=== PATIENT | male | born 1955 | race Caucasian/White ===

== ENCOUNTER 2017-01-17 17:15 | Emergency (ER) | payer MEDICAID ==
[2017-01-17 17:26] VITALS: TEMP 98.2
[2017-01-17] MEDS ORDERED: Sodium Chloride 0.9% 1,000 ML IV ONE (17:35)
[2017-01-17] MEDS ORDERED: DiphenhydrAMINE 50 mg/ml Inj IVP STA (17:35)
[2017-01-17] MEDS ORDERED: Sodium Chloride 0.9% 1,000 ML ONE (17:42)
[2017-01-17] MEDS ORDERED: DiphenhydrAMINE 50 mg/ml Inj ONE (17:42)
--- NOTE | 2017-01-17 18:12 | C.PDOC ---
History Of Present Illness 61 y/o male presents to the ED with complains of allergic reaction to new medication. Patient was recently prescribed relafen and baclofen for back pain; was taking gabapentin and tramadol prior. Patient admits did not eat prior to taking new medications. He reports feeling light headed and itchy. Denies SOB, throat pain, difficulty swallowing, rash, cough or any other complaints. Time Seen by Provider: 01/17/17 17:30 Chief Complaint (Nursing): Allergic Reaction History Per: Patient History/Exam Limitations: no limitations Onset/Duration Of Symptoms: Hrs Current Symptoms Are (Timing): Still Present Severity: Mild Recent travel outside of the [place]: No Past Medical History Reviewed: Historical Data, Nursing Documentation, Vital Signs Vital Signs: Last Vital Signs Temp 98.2 F 01/17/17 18:41 Pulse 52 L 01/17/17 18:41 Resp 14 01/17/17 18:41 BP 159/82 H 01/17/17 18:41 Pulse Ox 100 01/17/17 18:41 - Medical History PMH: Back Problems Family History: States: Unknown Family Hx - Social History Hx Tobacco Use: No Hx Alcohol Use: No Hx Substance Use: No Review Of Systems Constitutional: Negative for: Fever, Weakness, Malaise Eyes: Negative for: Vision Change ENT: Negative for: Throat Pain Cardiovascular: Negative for: Chest Pain, Palpitations Respiratory: Negative for: Cough, Shortness of Breath, Wheezing Gastrointestinal: Negative for: Nausea, Vomiting, Abdominal Pain, Diarrhea Skin: Positive for: Other (itchiness) Neurological: Positive for: Headache, Other (lightheaded) Physical Exam - Physical Exam Appears: Non-toxic, No Acute Distress Skin: Warm, Dry, No Rash Head: Atraumatic, Normacephalic, No Tenderness Eye(s): bilateral: Normal Inspection, PERRL, EOMI Nose: Normal Oral Mucosa: Moist Tongue: Normal Appearing, No Swelling Lips: Normal Appearing, No Swelling Throat: Normal, No Erythema, No Drooling, No Mass Neck: Normal, Normal ROM, Supple Chest: Symmetrical Cardiovascular: Rhythm Regular, No Murmur Respiratory: Normal Breath Sounds, No Rales, No Rhonchi, No Wheezing Gastrointestinal/Abdominal: Normal Exam, Soft, No Tenderness Extremity: Bilateral: Atraumatic, Normal Color And Temperature, Normal ROM Neurological/Psych: Oriented x3, Normal Speech Gait: Steady ED Course And Treatment ECG: Interpreted By Me, Viewed By Me ECG Rhythm: Sinus Bradycardia ECG Interpretation: No Acute Changes Rate From EC (BPM) O2 Sat by Pulse Oximetry: 99 (room air) Pulse Ox Interpretation: Normal Medical Decision Making Medical Decision Making: Plan: * benadryl * IV fluids Re-assess: Patient remained alert and oriented with stable vital signs during ER evaluation. On re-examination, patient is resting comfortably in no acute distress. Patient reports improvement of symptoms. Patient feels comfortable going home and will be discharged. Patient given follow up instructions. Instructed to return to ER if symptoms worsen or new symptoms arise. Disposition Counseled Patient/Family Regarding: Diagnosis, Need For Followup - Disposition Disposition: HOME/ ROUTINE Disposition Time: 18:26 Condition: STABLE Additional Instructions: Please take Benadryl for any itching you may have You may want to contact your doctor or follow up regarding new medications Return to the emergency department at any time if symptoms persist or worsen. 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 - Scribe Statement The provider has reviewed the documentation as recorded by the Ricoibkiran Morgan All medical record entries made by the Ricoibkiran were at my direction and personally dictated by me. I have reviewed the chart and agree that the record accurately reflects my personal performance of the history, physical exam, medical decision making, and the department course for this patient. I have also personally directed, reviewed, and agree with the discharge instructions and disposition.
[2017-01-17 18:42] VITALS: BP 159/82; PULSE 52; RESP 14
[2017-01-18 08:04] VITALS: O2SAT 99
== END 2017-01-17 19:02 | disposition home or self-care (01) ==
LOC: C.ER 17:15
DX: R42 Dizziness and giddiness (principal); L29.9 Pruritus, unspecified; T50.995A Adverse effect of other drugs, medicaments and biological substances, initial encounter; Y92.009 Unspecified place in unspecified non-institutional (private) residence as the place of occurrence of the external cause
CPT/HCPCS: 96361; 96374; 99285; J1200; J7040

== ENCOUNTER 2017-03-07 11:36 | Emergency (ER) | payer MEDICAID ==
[2017-03-07 11:55] VITALS: O2SAT 98
[2017-03-07] MEDS ORDERED: Albuterol-Ipratrop 3 mg / 0.5 (3 ml) UD IH STA (12:17)
[2017-03-07] MEDS ORDERED: Albuterol-Ipratrop 3 mg / 0.5 (3 ml) UD ONE (12:28)
--- NOTE | 2017-03-07 12:28 | C.PDOC ---
History Of Present Illness A 61 y/o male c/o a productive cough and chest pain that began last night. Patient notes that he heard wheezing in his lungs which prompted his visit. Patient denies SOB, N/V/D, palpitations, abdominal pain, back pain, lower extremity pain, jaw pain, diaphoresis, lightheadedness, dizziness, weakness, fever, chills, or visual changes. Patient notes he had a subjective fever a few days prior and had a cataract extraction done. Time Seen by Provider: 03/07/17 12:17 Chief Complaint (Nursing): Shortness Of Breath History Per: Patient History/Exam Limitations: no limitations Onset/Duration Of Symptoms: Days Current Symptoms Are (Timing): Still Present Severity: Mild Associated Symptoms: denies: Fever, Chills, Sweating Recent travel outside of the [place]: No Additional History Per: Patient Past Medical History Reviewed: Historical Data, Nursing Documentation, Vital Signs Vital Signs: Last Vital Signs Temp 97.7 F 03/07/17 13:15 Pulse 66 03/07/17 13:15 Resp 16 03/07/17 13:15 BP 131/90 03/07/17 13:15 Pulse Ox 98 03/07/17 13:23 - Medical History PMH: Back Problems Family History: States: Unknown Family Hx - Social History Hx Tobacco Use: No Hx Alcohol Use: No Hx Substance Use: No - Immunization History Hx Tetanus Toxoid Vaccination: No Hx Influenza Vaccination: No Hx Pneumococcal Vaccination: No Review Of Systems Except As Marked, All Systems Reviewed And Found Negative. Constitutional: Negative for: Fever, Chills, Sweats Eyes: Negative for: Vision Change Cardiovascular: Positive for: Chest Pain. Negative for: Palpitations, Light Headedness Respiratory: Positive for: Cough (Productive). Negative for: Shortness of Breath Gastrointestinal: Negative for: Nausea, Vomiting, Abdominal Pain, Diarrhea Musculoskeletal: Negative for: Back Pain, Leg Pain, Other (Jaw pain) Neurological: Negative for: Weakness, Dizziness Physical Exam - Physical Exam Appears: Well, Non-toxic, No Acute Distress Skin: Normal Color, Warm, Dry Head: Atraumatic, Normacephalic Eye(s): bilateral: Normal Inspection Chest: Symmetrical, Tenderness (Reproducable right sided anterior chest tenderness) Cardiovascular: Rhythm Regular, No Murmur Respiratory: Normal Breath Sounds, No Rales, No Rhonchi, No Wheezing Gastrointestinal/Abdominal: Soft, No Tenderness Back: Normal Inspection, No CVA Tenderness Extremity: Normal ROM, No Pedal Edema, Capillary Refill (<2secs), No Deformity, No Swelling Neurological/Psych: Oriented x3, Normal Speech, Normal Cognition, Other (No focal deficit) Gait: Steady ED Course And Treatment ECG: Interpreted By Me ECG Rhythm: Sinus Rhythm ECG Interpretation: Normal, No Acute Changes Rate From EC O2 Sat by Pulse Oximetry: 98 (RA) Pulse Ox Interpretation: Normal - Other Rad No standard instances X-Ray: Viewed By Me, Read By Radiologist Interpretation: FINDINGS: LUNGS: No active pulmonary disease. PLEURA: No significant pleural effusion identified. No pneumothorax apparent. CARDIOVASCULAR: Normal. OSSEOUS STRUCTURES: No significant abnormalities. VISUALIZED UPPER ABDOMEN: Normal. OTHER FINDINGS: Trachea is midline. Aorta is normal in size. No compression fractures seen in the spine. Retro sternal region is unremarkable. IMPRESSION: No active disease. Progress Note: Impression: A 61 y/o male c/o a productive cough and chest pain that began last night. Plans: CXR, Albbuterol, Motrin, Nebulizer treatment, Reassess. On re-evaluation lungs clear, feeling better Reassessment Condition: Improved Disposition Counseled Patient/Family Regarding: Studies Performed, Diagnosis, Need For Followup - Disposition Referrals: [facility] [Outside] [facility] [Outside] Disposition: HOME/ ROUTINE Disposition Time: 13:30 Condition: STABLE Additional Instructions: return to ED if any increase symptoms Prescriptions: Albuterol HFA [Ventolin HFA 90 mcg/actuation (8 g)] 2 puff IH [id number] PRN #1 pkt PRN Reason: Shortness Of Breath Instructions: Upper Respiratory Infection (ED), Cold Symptoms (ED) - POA Present On Arrival: None - Clinical Impression Clinical Impression: Respiratory tract infection - Scribe Statement The provider has reviewed the documentation as recorded by the Scribe Britney smith All medical record entries made by the Scribe were at my direction and personally dictated by me. I have reviewed the chart and agree that the record accurately reflects my personal performance of the history, physical exam, medical decision making, and the department course for this patient. I have also personally directed, reviewed, and agree with the discharge instructions and disposition.
--- NOTE | 2017-03-07 12:38 | RAD ---
HISTORY: SOB COMPARISON: No prior. TECHNIQUE: Chest PA and lateral FINDINGS: LUNGS: No active pulmonary disease. PLEURA: No significant pleural effusion identified. No pneumothorax apparent. CARDIOVASCULAR: Normal. OSSEOUS STRUCTURES: No significant abnormalities. VISUALIZED UPPER ABDOMEN: Normal. OTHER FINDINGS: Trachea is midline. Aorta is normal in size. No compression fractures seen in the spine. Retro sternal region is unremarkable. IMPRESSION: No active disease.
[2017-03-07 13:25] VITALS: BP 131/90; PULSE 66; RESP 16; TEMP 97.7
--- NOTE | 2017-03-08 19:24 | CARD ---
APPROVED REPORT EKG Measurement Heart [id number] ID [id number] <Conclusion> Normal sinus rhythm Possible Left atrial enlargement Nonspecific intraventricular conduction delay Borderline ECG
== END 2017-03-07 13:31 | disposition home or self-care (01) ==
LOC: C.ER 11:36
DX: J06.9 Acute upper respiratory infection, unspecified (principal)